=== PATIENT | female | born 1995 | race Caucasian/White ===

== ENCOUNTER → 2022-03-08 13:03 | Outpatient (BNVA) | payer OTHER, SELFPAY | PROVIDERS: PCP Nurse Practitioner Family; Visit Provider Physician Assistant Medical | DX: S33.9XXA Sprain of unspecified parts of lumbar spine and pelvis, initial encounter (principal); W18.09XA Striking against other object with subsequent fall, initial encounter | CPT/HCPCS: 99203 ==

== ENCOUNTER → 2022-03-10 09:29 | Outpatient (BNVA) | payer OTHER, SELFPAY | PROVIDERS: PCP Nurse Practitioner Family; Visit Provider Physician Assistant | DX: S39.012A Strain of muscle, fascia and tendon of lower back, initial encounter (principal); W18.09XA Striking against other object with subsequent fall, initial encounter | CPT/HCPCS: 99213 ==

== ENCOUNTER 2022-05-25 10:32 | Outpatient (REF) | payer OTHER, SELFPAY ==
[2022-05-25 13:41] LABS: MANUAL DIFF FLAG NO
[2022-05-25 13:43] LABS: Basophils Percent Auto 0.3 % (0-2); Eosinophils Absolute Auto 0.2 X10*3/uL (0.0-0.4); Eosinophils Percent Auto 1.9 % (0-4); Hematocrit 41.6 % (37.0-47.0); Hemoglobin 13.7 g/dl (12.0-16.0); Imm Gran Abs Auto 0.03 X10*3/uL (0.00-0.03); Imm Gran Pct Auto 0.3 % (0.0-0.4); Lymphocytes Absolute Auto 1.5 X10*3/uL (1.2-4.9); Lymphocytes Percent Auto 16.6 % (20-40); Mean Corpuscular HGB Conc 32.9 g/dl (31.0-35.0); Mean Corpuscular Hemoglobin 27.5 pg (27.0-33.0); Mean Corpuscular Volume 83.5 fL (80.0-98.0); Mean Platelet Volume 12.6 fL (9.4-12.3); Monocytes Absolute Auto 0.5 X10*3/uL (0.1-1.2); Monocytes Percent Auto 5.1 % (2-11); Neutrophils Absolute Auto 6.9 x10*3/uL (2.0-8.3); Neutrophils Percent Auto 75.8 % (45-73); Platelet Count 156 X10*3/uL (160-400); Red Blood Count 4.98 X10*6/uL (4.20-5.50); White Blood Count 9.1 X10*3/uL (4.8-10.8)
[2022-05-25 14:07] LABS: Alanine Aminotransferase 38 U/L (0-31); Albumin Level 4.3 g/dL (3.5-5.0); Alkaline Phosphatase 65 U/L (39-117); Anion Gap 15 (12-20); Aspartate Amino Transferase 20 U/L (5-31); Bilirubin Total 0.7 mg/dL (0.0-1.0); Blood Urea Nitrogen 8 mg/dL (9-16); Calcium 9.2 mg/dL (8.4-10.2); Carbon Dioxide 22 mmol/L (22-29); Chloride 106 mmol/L (96-108); Cholesterol 128 mg/dL; Estimated Glomerular Filt Rate > 60; Glucose Fasting 104 mg/dL (60-99); HDL Cholesterol 43 mg/dL; LDL Cholesterol Calculated 74 mg/dl; Potassium 4.2 mmol/L (3.3-5.1); Sodium 139 mmol/L (135-145); Total Protein 7.7 g/dL (6.5-8.0); Triglycerides 59 mg/dL
[2022-05-25 14:17] LABS: TSH reflex Free T4 0.32 uIU/mL (0.32-4.0); Vitamin D 25-OH Total 9.1 ng/mL (>30)
[2022-05-25 14:25] LABS: Vitamin B12 311 pg/mL (200-900)
[2022-05-25 15:15] LABS: Folate 7.1 ng/mL (> or = 4.0)
== END 2022-05-25 10:33 | disposition home or self-care (01) ==
LOC: HO.10HDL 10:32
PROVIDERS: Visit Provider Nurse Practitioner Family
DX: F41.9 Anxiety disorder, unspecified (principal); F32.A Depression, unspecified
CPT/HCPCS: 36415; 80053; 80061; 82306; 82607; 82746; 84443; 85025

== ENCOUNTER 2022-06-02 09:50 | Outpatient (REF) | payer OTHER, SELFPAY ==
[2022-06-02 11:11] LABS: Estimated Average Glucose 108 mg/dL; Hemoglobin A1c % 5.4 %
== END 2022-06-02 09:51 | disposition home or self-care (01) ==
LOC: HO.10HDL 09:50
PROVIDERS: Visit Provider Nurse Practitioner Family
DX: R73.01 Impaired fasting glucose (principal)
CPT/HCPCS: 36415; 83036

== ENCOUNTER 2022-11-22 11:08 | Outpatient (REF) | payer OTHER, SELFPAY ==
[2022-11-22 13:58] LABS: Estimated Average Glucose 105 mg/dL; Hemoglobin A1c % 5.3 %
[2022-11-22 14:17] LABS: Alanine Aminotransferase 35 U/L (0-31); Albumin Level 4.2 g/dL (3.5-5.0); Alkaline Phosphatase 65 U/L (39-117); Anion Gap 12 (12-20); Aspartate Amino Transferase 20 U/L (5-31); Bilirubin Total 1.1 mg/dL (0.0-1.0); Blood Urea Nitrogen 10 mg/dL (9-16); Calcium 9.2 mg/dL (8.4-10.2); Carbon Dioxide 24 mmol/L (22-29); Chloride 108 mmol/L (96-108); Estimated Glomerular Filt Rate > 60; Glucose Fasting 79 mg/dL (60-99); Potassium 4.4 mmol/L (3.3-5.1); Sodium 140 mmol/L (135-145); Total Protein 7.5 g/dL (6.5-8.0)
[2022-11-22 14:36] LABS: Vitamin D 25-OH Total 26.5 ng/mL (>30)
== END 2022-11-22 11:09 | disposition home or self-care (01) ==
LOC: HO.10HDL 11:08
PROVIDERS: Visit Provider Nurse Practitioner Family
DX: R73.01 Impaired fasting glucose (principal); R79.89 Other specified abnormal findings of blood chemistry
CPT/HCPCS: 36415; 80053; 82306; 83036

== ENCOUNTER 2023-12-12 09:44 | Outpatient (AMB) | payer OTHER, SELFPAY ==
--- NOTE | 2023-12-12 09:54 | A.OFFPC_ITS ---
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 cigarette use by 1 to 2 cigarettes/day. . Advised to monitor what triggers are for smoking so that this can discuss at the next office visit. When pt is ready to consider quitting smoking, we can discuss the possible use of medications. Crisis Hotlines Suicide prevention, domestic violence, and other crisis hotlines for youth, young adults, and their friends and families. [employer] Runaway Safeline: The [employer] Safeline helps youth who have run away, are thinking about running away, or who already ran away but are ready to come home. Parents and guardians can also contact the hotline if they are worried about their child running away or if their child has already left home. The hotline is available 24 hours a day, seven days a week. Youth, parents, and guardians can also use the online chat feature on the [facility]'s website to ask for help and get support, [place] [address]. [facility] National Suicide Prevention Lifeline: The National Suicide Prevention Lifeline is a network of local crisis centers that are available 12/02 to provide support for youth and adults who are in any kind of emotional crisis. In addition to the main hotline number listed above, there are several other numbers to call depending on your needs: Dutch Language: Deaf and Hard of [phone] Veterans: Disaster Distress: Anyone can also use their online chat feature on their website. [place] Suicide Prevention Lifeline [facility] Helpline: The [facility] Helpline is available to anyone in [place] who is need of emotional support. Anyone can call or text the helpline to receive help from specially trained volunteers. [place] high school and college students can also get online support through the [employer]_ program. For high school students, volunteers ages 15-18 are available Sunday- from 6-9PM. For college students, [employer]_ is available Sunday-Sunday from 5-9PM. The [employer] - The [employer] Project is a 12/02 crisis intervention and suicide prevention hotline for LGBTQ youth. Youth can also text Piyush to for support, or use the online chat feature on the [employer]'s website. [employer] is available Sunday-Sunday between 3-10PM. [employer] is available seven days a week between 3-10PM. SafeLink: SafeLink is for anyone who is being affected by domestic violence or dating violence. Volunteers at [employer] speak Slovenian and Dutch, and [employer] also has a service that can provide translation in more than 130 languages. TTY: Coding Level of Care Code Est Pt Prev Care 18-39y(73717) Diagnoses Physical exam Z00.00 Encounter for screening involving social determinants of health (SDoH) Z13.9 MARTHA (generalized anxiety disorder) F41.1 Elevated fasting glucose R73.01 Low vitamin D level R79.89 Morbid obesity with BMI of 45.0-49.9, adult E66.01; Z68.42 Moderate major depression F32.1 Laboratory exam ordered as part of routine general medical examination Z00.00 Vaping nicotine dependence, non-tobacco product F17.200 Mild intermittent asthma in adult without complication J45.20 History of substance abuse F19.11 Additional Codes MARTHA-7 Assessment Billing - MARTHA-7 Assessment Tool: MARTHA-7 Assessment 79178 ([id number]) Vital Signs *Quality* - CPT code: 36202 - 4-10 Minutes ([id number]) Vital Signs *Quality* - Advance Care Planning discussion: Exists, not on file ([id number]) Vital Signs *Quality* - Time spent: 1-15 minutes, not on file ([id number])
[2023-12-12 09:58] VITALS: BP 117/65; PULSE 81; RESP 14; TEMP 36.7; O2SAT 95; BMI 43.2
== END 2023-12-12 16:54 | disposition home or self-care (01) ==
PROVIDERS: PCP Nurse Practitioner Family; Visit Provider Nurse Practitioner Family
DX: Z00.00 Encounter for general adult medical examination without abnormal findings (principal); E66.01 Morbid (severe) obesity due to excess calories; Z68.42 Body mass index [BMI] 45.0-49.9, adult; F32.1 Major depressive disorder, single episode, moderate; F19.11 Other psychoactive substance abuse, in remission; F41.1 Generalized anxiety disorder; R73.01 Impaired fasting glucose; R79.89 Other specified abnormal findings of blood chemistry; F17.210 Nicotine dependence, cigarettes, uncomplicated; J45.20 Mild intermittent asthma, uncomplicated
CPT/HCPCS: 1124F; 99395

== ENCOUNTER 2023-12-12 10:33 | Outpatient (REF) | payer OTHER, SELFPAY ==
[2023-12-12 15:10] LABS: Hematocrit 40.3 % (37.0-47.0); Hemoglobin 13.6 g/dl (12.0-16.0); Mean Corpuscular HGB Conc 33.7 g/dl (31.0-35.0); Mean Corpuscular Hemoglobin 28.4 pg (27.0-33.0); Mean Corpuscular Volume 84.1 fL (80.0-98.0); Mean Platelet Volume 12.3 fL (9.4-12.3); Platelet Count 171 X10*3/uL (160-400); Red Blood Count 4.79 X10*6/uL (4.20-5.50); Red Cell Distribution Width 13.5 % (11.0-16.0); White Blood Count 6.8 X10*3/uL (4.8-10.8)
[2023-12-12 17:47] LABS: Microalbum/Creatinine Ratio Ur 8.6 ug/mg cr (<30)
[2023-12-12 17:47] LABS: Alanine Aminotransferase 137 U/L (0-31); Alkaline Phosphatase 67 U/L (39-117); Anion Gap 13 (12-20); Aspartate Amino Transferase 69 U/L (5-31); Bilirubin Total 1.2 mg/dL (0.0-1.0); Blood Urea Nitrogen 7 mg/dL (9-16); Calcium 9.1 mg/dL (8.4-10.2); Carbon Dioxide 23 mmol/L (22-29); Chloride 104 mmol/L (96-108); Estimated Average Glucose 108 mg/dL; Estimated Glomerular Filt Rate > 60; Glucose Random 99 mg/dL (60-115); Hemoglobin A1c % 5.4 % (<6.0); Iron 35 mcg/dL (30-160); Percent Iron Saturation 14 % (15-50); Potassium 3.2 mmol/L (3.3-5.1); Sodium 137 mmol/L (135-145); Total Iron Binding Capacity 245 mcg/dL (228-428); Total Protein 7.7 g/dL (6.5-8.0); Unsaturated Iron Binding 210 ug/dL; Vitamin B12 512 pg/mL (200-900)
[2023-12-12 17:48] LABS: TSH reflex Free T4 1.29 uIU/mL (0.32-4.0)
[2023-12-13 14:24] LABS: LDL Cholesterol Direct 83 mg/dL (<100)
[2023-12-16 06:13] LABS: VITAMIN D (1,25 OH) D3 94 pg/mL; Vit D (1,25-Dihydroxy) Total 94 pg/mL (18-72); Vitamin D (1,25 OH) D2 <8 pg/mL
== END 2023-12-12 10:34 | disposition home or self-care (01) ==
LOC: HO.WFDLDS 10:33
PROVIDERS: Visit Provider Nurse Practitioner Family
DX: Z00.00 Encounter for general adult medical examination without abnormal findings (principal); R73.01 Impaired fasting glucose; R79.89 Other specified abnormal findings of blood chemistry; Z68.42 Body mass index [BMI] 45.0-49.9, adult; E66.01 Morbid (severe) obesity due to excess calories
CPT/HCPCS: 36415; 80053; 82043; 82570; 82607; 82652; 83036; 83540; 83721; 84443; 85027

== ENCOUNTER 2024-01-02 15:07 | Outpatient (AMB) | payer OTHER, SELFPAY ==
--- NOTE | 2024-01-02 15:00 | A.OFFPC_ITS ---
Intake Visit Reasons: Review of Labs Allergies No Known Allergies [No Known Allergies*] Allergy (Verified 01/02/24 15:06) moisquitoes Allergy (Mild, Uncoded 11/22/22 10:15) puffiness, rash Medication List - Last Reconciled 01/02/24 by ARMOND Rubio-EBONI albuterol sulfate 90 mcg/actuation 2 inhalations inhalation Q6H PRN fluticasone propionate 50 mcg/actuation 1 spray intranasal BID Tobacco use date assessed: 12/12/23 Dental Screening Dental Screen Date: 12/12/23 HPI HPI Comments History of Present Illness Details 28-year-old female with generalized anxi ety disorder, major depressive disorder, impaired fasting glucose, morbid obesity, vitamin-D deficiency tobacco use quit in 2018 (smoke 3 packs a week times 2-3 years), history of substance abuse ( opiate abuse follow up with [facility] since 2018) Status post cholecystectomy, D and C Health maintenance Pap 2020 [place] tdap 01/15/2017 [facility]ists [facility] at [facility] [place] Counseling Telehealth visit today to f/u on the labs below. Labs from 12/13/2023 show normal CBC, potassium 3.2, BUN 7, creatinine 0.71, normal GFR, hemoglobin A1c 5.4%, % iron saturation low at 14, total bilirubin elevated 1.2 AST elevated 69, ALT was elevated 137, normal alk-phos, normal direct LDL and B12, TSH within normal limits urine microalbumin creatinine ratio normal Overall she feels the same as last office visit. Relieved she does not have DM. She does not require Vit D supplement as Vit D level is normal Reviewed s/sx of elevated LFTs. Denies. Does have risks. + Iron def anemia. Denies overt bleeding . Plan: Start Iron QD. Titrate for GI effects. Repeat Labs and check add'l labs in 3 months. If LFTs remain abnormal, will consider imaging vs referral. Advised to return to office sooner as needed Front office tasked to schedule next visit. [facility] Medical History (Updated 01/02/24 @ 15:15 by ARMOND Rubio-EBONI) Asthma Low back pain History of smoking History of substance abuse Surgical History History of cholecystectomy History of D&C Family History Father No problems noted. Mother Hypertension Hypothyroid Social History (Updated 12/12/23 @ 10:08 by BEENA Savage) Household Members: Family Both parents involved: No Caregiver staying overnight: No Housing: House Are you a primary child care leader to a significant other at home: No Do you presently have visiting nurse or other home services: No 75 years or older and lives alone: No Alcohol intake: current Alcohol intake frequency: holidays/special occasions only Alcohol type: other Patient Tobacco Use Status: Former Tobacco user Tobacco use type: Cigarette e-Cigarette/Vaping Use: Currently Using Second Hand Smoke Exposure: No service: No Current occupational status: unemployed Cognitive needs: No Hearing needs: No Vision needs: Yes (glasses ) Questionnaire Thrive Questionnaire Date Thrive assessed: 12/12/23 MARTHA-7 AMB Questionnaire MARTHA-7 Date MARTHA - 7 assessed: 12/12/23 Source: Developed by Drs. Qamar Min, Denise Haq, Madi Murphy and colleagues, with an educational santiago from [employer]. Physical exam (Primary Care) Tobacco/Smoking Status: Tobacco use Status Tobacco use date assessed 12/12/23 12/12/23 10:08 Patient Tobacco Use Status Former Tobacco user 12/12/23 10:08 Tobacco use type Cigarette 12/12/23 10:08 e-Cigarette/Vaping Use Currently Using 12/12/23 10:08 Thrive Assessment: Date of Thrive Assessment Date Thrive assessed 12/12/23 12/12/23 10:10 Telehealth Telehealth Telehealth Platform: Telephone Location of provider rendering services: practice address Location of patient: address on file Patient Identification confirmed using: Name, : Yes Telehealth method: voice only Patient verbally consented to treatment: Yes Patient verbally consented to billing insurance company: Yes Patient informed of any privacy concerns related to visit: Yes Minutes spent on Phone/Video with Pt.: 8 Assessment and Plan Assessment & Plan (1) Elevated LFTs: Code(s): R79.89 - Other specified abnormal findings of blood chemistry (2) Iron deficiency anemia: Code(s): D50.9 - Iron deficiency anemia, unspecified Qualifiers: Iron deficiency anemia type: other iron deficiency Qualified Code(s): D50.8 - Other iron deficiency anemias Orders: Orders Ferritin 03/23/24 D50.9 - Iron deficiency anemia, unspecified, R79.89 - Other specified abnormal findings of blood chemistry Complete Blood Count no Diff 03/23/24 D50.9 - Iron deficiency anemia, unspecified, R79.89 - Other specified abnormal findings of blood chemistry IRON PROFILE 03/23/24 D50.9 - Iron deficiency anemia, unspecified, R79.89 - Other specified abnormal findings of blood chemistry Liver Panel 03/23/24 D50.9 - Iron deficiency anemia, unspecified, R79.89 - Other specified abnormal findings of blood chemistry Hepatitis A,B,C Profile 03/23/24 D50.9 - Iron deficiency anemia, unspecified, R79.89 - Other specified abnormal findings of blood chemistry Medications: New ferrous sulfate take daily with food; reduce if stomach upset. 325 mg PO DAILY 90 tabs 0RF Patient Instructions: Plan: Start Iron QD. Titrate for GI effects. Repeat Labs and check add'l labs in 3 months. If LFTs remain abnormal, will con game programer imaging vs referral. Advised to return to office sooner as needed Front office tasked to schedule next visit. Coding Level of Care Code Tele Est Pt Level 1 (22343) Diagnoses Elevated LFTs R79.89 Other iron deficiency anemia D50.8 Iron deficiency anemia type: other iron deficiency
== END 2024-01-02 15:11 | disposition home or self-care (01) ==
LOC: HO.HMGFM 15:07
PROVIDERS: PCP Nurse Practitioner Family; Visit Provider Nurse Practitioner Family
DX: R79.89 Other specified abnormal findings of blood chemistry (principal); D50.8 Other iron deficiency anemias
CPT/HCPCS: 99212